=== PATIENT | female | born 1950 | race Caucasian/White ===

== ENCOUNTER 2016-12-03 11:10 | Observation (INO) ==
--- NOTE | 2016-12-03 12:22 | Emergency Department Note ---
Disposition Clinical Impression: Hemoptysis, Dyspnea on exertion, Abnormal EKG Disposition: Admitted As Inpatient Condition: Good Referrals: Karl Vargas Jr, MD [Primary Care Provider] - Forms: ED Satisfaction Letter Time of Disposition: 15:29 General Adult HPI - General Chief complaint: ED GI Bleed Stated complaint: Coughing up blood Time Seen by Provider: 12/03/16 11:30 Source: patient Limitations: no limitations Nursing Notes Reviewed: Yes Vital Signs Reviewed: Yes - History of Present Illness HPI Narrative: 66-year-old female history of 2 packs per day smoker, hyperlipidemia, hypothyroidism presents the ED for hemoptysis. Patient states this morning 1 AM she woke coffin up Yusuf blood. When I asked to describe it she denies sputum with blood streaks or any combination but more so blood. No history of this and the past. No anticoagulant used. She denies any chest pain, shortness breath or abdominal pain with us. Denies any bloody stool black tarry stool. Denies any history of active cancer, blood clots, surgery, hospitalization or long-distance travel. Denies any history of incarceration, TB exposure, fever, recent illness, weight loss. She reports a few weeks ago while in [place] she felt more short of breath with exertion. Denied and chest pain at that time. She has some soreness in her shoulders that has been chronic for past several weeks. The only thing new in concerning his her coughing up blood. Patient appears in no acute distress. Exam as otherwise unremarkable. She is not tachycardic or hypoxic. Will check EKG, to view chest x-ray, EKG as well as a troponin and d-dimer for low risk PE. Pain Scale: 3 - Related Data Home Medications Medication Instructions Recorded Confirmed Atorvastatin [Lipitor] 40 mg PO DAILY 12/03/16 12/03/16 Escitalopram [Lexapro] 20 mg PO DAILY 12/03/16 12/03/16 Levothyroxine Sodium 100 mcg PO QAM 12/03/16 12/03/16 [Levothyroxine Sodium] Allergies Allergy/AdvReac Type Severity Reaction Status Date / Time No Known Allergies Allergy Verified 09/20/16 12:52 All systems ED: reviewed and negative except as stated. Review of Systems: As Per HPI Constitutional: Denies: fever, chills, weight change, night sweats ENT ED: Denies: throat pain, congestion Cardiovascular: Denies: chest pain Respiratory: Reports: hemoptysis. Denies: cough, dyspnea Gastrointestinal: Denies: abdominal pain, nausea, vomiting Genitourinary: Denies: urgency, dysuria Musculoskeletal: Denies: back pain, neck pain Integumentary: Denies: rash, abrasion Neurological: Denies: headache, weakness Past Medical History - Past Medical History Attestation: Yes The following information was validated with the patient. Source: patient Medical history: Reports: hyperlipidemia, thyroid disease, other Psychiatric history: Reports: depression - Social History Smoking Status: Current every day smoker Smokeless Tobacco Status: No Alcohol use: Reports: none Drug use: Reports: none Physical Exam - General Limitations: no limitations General appearance: alert, in no apparent distress - Head Head exam: atraumatic, normocephalic, normal inspection - Eye Eye exam: Present: normal appearance, PERRL, EOMI - ENT ENT exam: normal exam, normal oropharynx, mucous membranes moist - Expanded ENT Exam External ear exam: Present: normal external inspection Nose exam: negative: rhinorrhea Mouth exam: Present: normal external inspection, tongue normal Teeth exam: Present: normal inspection Throat exam: Present: normal inspection, other (no obvious bleed, no posterior oropharngeal erythema). Absent: tonsillar exudate - Neck Neck exam: Present: normal inspection, full ROM, trachea midline - Chest Chest inspection: Present: normal inspection, symmetric chest wall rise - Respiratory Respiratory exam: Present: normal lung sounds bilaterally. Absent: respiratory distress, wheezes - Cardiovascular Cardiovascular exam: Present: regular rate, normal rhythm, normal heart sounds - Abdominal Exam Abdominal exam: Present: soft, Non-Tender, normal bowel sounds. Absent: tenderness, distention, guarding, rebound, rigidity - Extremities Exam Extremities exam: Present: normal inspection, full ROM, normal capillary refill. Absent: tenderness, pedal edema - Back Exam Back exam: Present: normal inspection, full ROM. Absent: tenderness - Neurological Exam Neurological exam: Present: alert, oriented X3, normal gait - Psychiatric Psychiatric exam: Present: normal affect, normal mood - Skin Skin exam: Present: warm, dry, intact, normal color Course - Reevaluation(s) Reevaluation #1: EKG shows some abnormal findings of T wave inversion in lateral leads. No old EKG for comparison. This is concerning given her recent episodes of dyspnea on exertion. Troponin is negative. Her D dimer is within normal limits. Low likelihood of pulmonary embolism. No risk factors for TB. Her chest x-ray does not show pneumonia or mass. Consideration for bronchitis but she denies any chronic cough. She continues to have yusuf hemoptysis as we can see in her tissues. Would like to admit her to medicine to evaluate her heart given EKG changes as well as inpatient evaluation for her hemoptysis. Patients in agreement with this plan. Aspirin has been given. Impression is abnormal EKG, hemoptysis, dyspnea on exertion. Time: 13:10 - Consultations Consultation #1: Spoke with on-call hospitalist stacy Travis to admit for hemoptysis, dyspnea on exertion, and abnormal EKG. the hospital's requests CTA of the chess to evaluate for pulmonary embolism. I discussed with her she is low risk given no history of cancer, blood clots, recent long-distance travel surgery or hospitalization as well as a normal D dimer and EKG with no right heart strain.. Requests CT prior transfer to the medical floor. Time: 15:17 Vital Signs Temperature 98.1 F 12/03/16 11:23 Pulse Rate 65 12/03/16 11:23 Respiratory Rate 16 12/03/16 11:23 Blood Pressure 155/84 12/03/16 11:23 O2 Sat by Pulse Oximetry 96 12/03/16 11:23 Temperature 98.1 F 12/03/16 11:23 Pulse Rate 73 12/03/16 14:12 Respiratory Rate 18 12/03/16 14:12 Blood Pressure 175/112 12/03/16 14:12 O2 Sat by Pulse Oximetry 99 12/03/16 14:12 Oxygen Delivery Oxygen Delivery Room Air Medical Decision Making - Medical Records Medical records reviewed: Yes I reviewed the patient's medical records. - Lab Data Lab results reviewed: Yes I reviewed the patient's lab results. Result diagrams: 12/03/16 12:25 12/03/16 12:25 Lab Results 12/03/16 12/03/16 12/03/16 Range/Units 12:25 12:25 12:25 WBC 6.3 (4.3-11.1) K/mcL RBC 4.80 (3.82-4.97) M/mcL Hgb 14.9 (11.5-15.4) g/dL Hct 45.9 H (35.3-44.9) % MCV 95.6 (83.0-100.0) fL MCH 31.0 (28.0-33.3) pg MCHC 32.5 (31.6-35.5) g/dL RDW 14.2 (11.5-14.5) % Plt Count 233 (140-400) K/mcL MPV 10.2 (9.4-12.4) fL Immature Gran % 0.5 (0-4) % Seg Neutrophils % 51.1 % Lymphocytes % 34.3 % Monocytes % 9.9 % Eosinophils % 3.2 % Basophils % 1.0 % Neutrophils # 3.2 (1.6-8.9) K/mcL Lymphocytes # 2.2 (0.6-4.6) K/mcL Monocytes # 0.6 (0.0-1.3) K/mcL Eosinophils # 0.2 (0.0-0.6) K/mcL Basophils # 0.1 (0.0-0.2) K/mcL Reactive Lymphocytes Present A (Not Present) Platelet Estimate Normal (Normal) D-Dimer 277 (0-500) ng/mLFEU Sodium 139 (136-145) mEq/L Potassium 4.4 (3.5-4.5) mEq/L Chloride 107 (98-109) mEq/L Carbon Dioxide 23 (19-29) mEq/L BUN 10 (7-20) mg/dL Creatinine 0.74 (0.57-1.11) mg/dL Est GFR ( Amer) > 60 (> 60) Est GFR (Non-Af Amer) > 60 (> 60) BUN/Creatinine Ratio 14 (6-26) Glucose 106 H (70-99) mg/dL Calculated Osmolality 287 (280-300) Calcium 9.5 (8.6-10.8) mg/dL Troponin I (0-0.03) ng/mL 12/03/16 Range/Units 12:25 WBC (4.3-11.1) K/mcL RBC (3.82-4.97) M/mcL Hgb (11.5-15.4) g/dL Hct (35.3-44.9) % MCV (83.0-100.0) fL MCH (28.0-33.3) pg MCHC (31.6-35.5) g/dL RDW (11.5-14.5) % Plt Count (140-400) K/mcL MPV (9.4-12.4) fL Immature Gran % (0-4) % Seg Neutrophils % % Lymphocytes % % Monocytes % % Eosinophils % % Basophils % % Neutrophils # (1.6-8.9) K/mcL Lymphocytes # (0.6-4.6) K/mcL Monocytes # (0.0-1.3) K/mcL Eosinophils # (0.0-0.6) K/mcL Basophils # (0.0-0.2) K/mcL Reactive Lymphocytes (Not Present) Platelet Estimate (Normal) D-Dimer (0-500) ng/mLFEU Sodium (136-145) mEq/L Potassium (3.5-4.5) mEq/L Chloride (98-109) mEq/L Carbon Dioxide (19-29) mEq/L BUN (7-20) mg/dL Creatinine (0.57-1.11) mg/dL Est GFR ( Amer) (> 60) Est GFR (Non-Af Amer) (> 60) BUN/Creatinine Ratio (6-26) Glucose (70-99) mg/dL Calculated Osmolality (280-300) Calcium (8.6-10.8) mg/dL Troponin I 0.00 (0-0.03) ng/mL - Radiology Data Radiology results reviewed: Yes I reviewed the patient's radiology results. Chest X-Ray 12/03/16 12:06 IMPRESSION: 1. No active pulmonary disease. D/ / aRn Momin MD / Ran Momin MD Interpreting Provider: Ran Momin MD - EKG Data EKG #1 EKG attestation: Yes I reviewed and interpreted this EKG. EKG results narrative: EKG performed 1225 normal sinus rhythm 64 beats per minute, normal axis, T wave inversion seen in the lateral leads (lead I, avL, V4-V6). No ST elevations or depression. No old EKG for comparison. This is an abnormal EKG. No chest pain at this time. Intervals are within normal limits. Attestation Statement - Attestation Attestation: I examined this patient and my medical decision-making was reviewed with the Resident Physician. I agree with the documented findings, disposition and treatment plan as described except to the extent set forth below. Yusuf hemoptysis started at 1:00 this morning, no sputum, only blood, about 30 episodes per patient report. No shortness of breath currently, although over the last couple of months she has had some exertional dyspnea that is a new symptom for her. No associated chest pain. No recent travel, trauma or surgery. No history of cancer, DVT or PE. Vital signs are normal. EKG shows nonspecific anterolateral ST segment depression and T-wave inversion, no old EKG available for comparison. She has no tuberculosis risk factors. She has no viral symptoms that would suggest bronchitis as a source for her hemoptysis. Clinical suspicion for PE is low, she is low risk by well's criteria as a negative d-dimer, PE is ruled out. Given her extensive smoking history, I am concerned about the possibility of malignancy. This can be worked up as an outpatient, however, given her exertional dyspnea and abnormal EKG, and inpatient evaluation by cardiology is warranted, and she could be evaluated for her hemoptysis while she is in the hospital.
[2016-12-03 12:36] LABS: Basophils # 0.1 K/mcL (0.0-0.2); Eosinophils # 0.2 K/mcL (0.0-0.6); Eosinophils % 3.2 %; Hematocrit 45.9 % (35.3-44.9); Hemoglobin 14.9 g/dL (11.5-15.4); Immature Granulocytes % 0.5 % (0-4); Lymphocytes # 2.2 K/mcL (0.6-4.6); Lymphocytes % 34.3 %; Mean Corpuscular HGB Conc 32.5 g/dL (31.6-35.5); Mean Corpuscular Volume 95.6 fL (83.0-100.0); Mean Platelet Volume 10.2 fL (9.4-12.4); Monocytes # 0.6 K/mcL (0.0-1.3); Monocytes % 9.9 %; Neutrophils # 3.2 K/mcL (1.6-8.9); Platelet Count 233 K/mcL (140-400); Red Cell Distribution Width 14.2 % (11.5-14.5); Segmented Neutrophils % 51.1 %
[2016-12-03 12:48] LABS: BUN/Creatinine Ratio 14 (6-26); Blood Urea Nitrogen 10 mg/dL (7-20); Calcium 9.5 mg/dL (8.6-10.8); Carbon Dioxide 23 mEq/L (19-29); Chloride 107 mEq/L (98-109); Glucose 106 mg/dL (70-99); Osmolality,Calculated 287 (280-300); Potassium 4.4 mEq/L (3.5-4.5); Sodium 139 mEq/L (136-145); eGFR For African Americans > 60 (> 60); eGFR For Non-African Americans > 60 (> 60)
[2016-12-03 13:10] LABS: Platelet Estimate Normal (Normal); Reactive Lymphocytes Present (Not Present)
[2016-12-03] MEDS ORDERED: Aspirin 81 MG TAB.CHEW PO STA (13:41)
[2016-12-03] MEDS ORDERED: Naloxone 0.4 MG/ML INJ IVP PRN (15:36)
[2016-12-03] MEDS ORDERED: Acetaminophen 325 MG TABLET PO PRN (15:36)
--- NOTE | 2016-12-03 15:44 | Internal Med History&Physical ---
<Lily Barth M - Last Filed: 12/03/16 17:14> Date of Encounter: 12/03/16 Time of Encounter: 15:42 Assessment and Plan (1) Pneumonia Current visit: Yes Status: Acute Patient presented with hemoptysis and reports some shortness of breath on exertion. CXR with no acute process. CT chest revealed ground glass in RUL concerning for pneumonia vs. alveolar damage, as well as findings consistent with bronchitis. Azithromycin and Ceftriaxone IVPB duoneb treatments QID PRN titrate oxygen to maintain saturation > 92%. Qualifiers: Pneumonia type: due to unspecified organism Laterality: right Lung location: upper lobe of lung Qualified Code(s): J18.1 - Lobar pneumonia, unspecified organism (2) Hemoptysis Current visit: Yes Status: Acute Patient reports coughing up yusuf blood since 1am. Yusuf blood observed on tissues that she has coughed up. She denies bloody nose or gums, no bleeding observed in the mouth. She denies nausea or vomiting. She denies chest pain. CXR shows no active pulmonary disease. CT chest shows ground glass in the right upper lobe consistent with pneumonia or alveolar damage, as well as findings consistent with bronchitis. Will treat for pneumonia with azithromycin and ceftriaxone. Consider pulmonary consult if hemoptysis does not resolve. (3) Dyspnea on exertion Current visit: Yes Status: Acute Patient reports some dyspnea on exertion recently, no chest pain. She has significant smoking history. EKG showed t wave inversions with no basis for comparison. troponin negative. Continuous cardiac cath tech serial troponins echocardiogram. (4) Abnormal EKG Current visit: Yes Status: Acute EKG shows t-wave inversions with no basis for comparison. Patient denies chest pain, but reports occasional dyspnea on exertion. continuous cardiac cath tech serial troponins repeat EKG in 6 hours echocardiogram. (5) DVT prophylaxis Current visit: Yes Status: Acute sequential compression devices. Internal Medicine - H&P: HPI Chief complaint: coughing up blood Admitted From: Emergency Dept Plans for Post Hospital Care: Home History of present illness: Ms. Molina is a 66 year old female with hypothyroidism, hyperlipidemia, significant smoking history presents to the emergency department today with complaints of coughing up blood. Patient reports that at about 1 AM she started coughing and was coughing up yusuf blood. She has continued to cough up yusuf blood since that time. She denies any chest pain, shortness of breath , lightheadedness. She does report some dyspnea on exertion recently. She denies any nausea, vomiting, abdominal pain, diarrhea, black or bloody stools. She denies any headache, fever, chills or sweats. She denies any bloody noses, bloody gums, or any other episodes of bleeding. Evaluation in the emergency department revealed normal hemoglobin and hematocrit, normal white blood cell count. Troponin was negative at 0.0, d-dimer was normal. Her EKG did show some T-wave inversions and there was no baseline for comparison. Chest x-ray showed no active pulmonary disease. CTA was ordered, however not yet performed. On exam, patient alert and oriented, in no acute distress. Heart has regular rate and rhythm with systolic murmur. Lungs were clear bilaterally with diminished sounds on the right. Abdomen soft nontender with positive bowel sounds. No peripheral edema, peripheral pulses intact. Past Med Surg Social Fam HX - Past Medical History Medical history: hyperlipidemia, thyroid disease, other Psychiatric history: depression - Past Surgical History Surgical History: no surgical history - Social History Smoking Status: Current every day smoker (90 pack year history) Packs per day: 2 Smokeless Tobacco Status: No Alcohol use: none Drug use: none - Family History Mother Living Status: Cause of : copd Hx Family Respiratory Disorders: Yes Father Living Status: Age at : 59 Hx Family Cancer: Yes Internal Medicine - H&P: Meds Atorvastatin [Lipitor] 40 mg PO DAILY 12/03/16 [History] Escitalopram [Lexapro] 20 mg PO DAILY 12/03/16 [History] Levothyroxine Sodium [Levothyroxine Sodium] 100 mcg PO QAM 12/03/16 [History] Allergies No Known Allergies Allergy (Verified 09/20/16 12:52) All Systems PM: A 10-system review of systems was performed and is negative for pertinent findings except as documented above in the HPI. - Constitutional Constitutional: no chills, no fever(s), no night sweats - EENT Eyes: no change in vision, no discharge, no pain, no photophobia Ears: no ear discharge, no ear pain, no tinnitus Nose, mouth and throat: no dysphagia, no nasal discharge, no neck pain, no sore throat - Cardiovascular Cardiovascular ROS IM: no chest pain, no diaphoresis, no dyspnea, no lightheadedness, no palpitations, no syncope - Respiratory Respiratory: hemoptysis, dyspnea on exertion, no cough, no dyspnea, no wheezing , no excessive phlegm production - Gastrointestinal Gastrointestinal: no abdominal pain, no diarrhea, no hematemesis, no hematochezia, no melena, no nausea, no vomiting - Genitourinary Genitourinary: no change in urinary stream, no dysuria, no flank pain, no hematuria - Musculoskeletal Musculoskeletal ROS IM: no numbness, no tingling - Integumentary Integumentary IM: no rash, no unusual bruising - Neurological Neurological ROS: no confusion, no convulsions, no focal weakness, no numbness, no tingling, no tremor(s) - Hematologic/Lymphatic Hematologic/Lymphatic: no easy bruising - Constitutional Vitals: Temp Pulse Resp BP Pulse Ox 98.1 F 73 18 175/112 99 12/03/16 11:23 12/03/16 14:12 12/03/16 14:12 12/03/16 14:12 12/03/16 14:12 General appearance: Present: A&O X 3, pleasant, no acute distress - Head Head exam: Present: atraumatic, normocephalic - Eye Eye exam: Present: PERRL, conjuntiva pink, sclera anicteric Pupils: Present: PERRL - Neck Neck exam general surgery: Present: supple, trachea midline. Absent: lymphadenopathy - Respiratory Respiratory exam: Present: CTAB. Absent: accessory muscle use, rales, rhonchi, wheezes - Cardiovascular Cardiovascular exam: Present: RRR, +S1, +S2, systolic murmur. Absent: diastolic murmur, gallop, rubs - GI/Abdominal GI/Abdominal exam: Present: normal bowel sounds, soft, no peritoneal signs. Absent: distended, tenderness - Extremities Exam Extremities exam: Present: warm, radial pulses palpable and symmetrical. Absent : calf tenderness, cyanotic, pedal edema - Neurological Exam Neurological exam: Present: CN II-XII intact, oriented X3, no focal deficits. Absent: facial droop, speech deficit - Skin Skin exam: Present: dry, intact Internal Med - H&P Results - Labs CBC & Chem 7: 12/03/16 12:25 12/03/16 12:25 Labs: All Lab Results (24 Hours) 12/03/16 12/03/16 12/03/16 Range/Units 12:25 12:25 12:25 WBC 6.3 (4.3-11.1) K/mcL RBC 4.80 (3.82-4.97) M/mcL Hgb 14.9 (11.5-15.4) g/dL Hct 45.9 H (35.3-44.9) % MCV 95.6 (83.0-100.0) fL MCH 31.0 (28.0-33.3) pg MCHC 32.5 (31.6-35.5) g/dL RDW 14.2 (11.5-14.5) % Plt Count 233 (140-400) K/mcL MPV 10.2 (9.4-12.4) fL Immature Gran % 0.5 (0-4) % Seg Neutrophils % 51.1 % Lymphocytes % 34.3 % Monocytes % 9.9 % Eosinophils % 3.2 % Basophils % 1.0 % Neutrophils # 3.2 (1.6-8.9) K/mcL Lymphocytes # 2.2 (0.6-4.6) K/mcL Monocytes # 0.6 (0.0-1.3) K/mcL Eosinophils # 0.2 (0.0-0.6) K/mcL Basophils # 0.1 (0.0-0.2) K/mcL Reactive Lymphocytes Present A (Not Present) Platelet Estimate Normal (Normal) D-Dimer 277 (0-500) ng/mLFEU Sodium 139 (136-145) mEq/L Potassium 4.4 (3.5-4.5) mEq/L Chloride 107 (98-109) mEq/L Carbon Dioxide 23 (19-29) mEq/L BUN 10 (7-20) mg/dL Creatinine 0.74 (0.57-1.11) mg/dL Est GFR ( Amer) > 60 (> 60) Est GFR (Non-Af Amer) > 60 (> 60) BUN/Creatinine Ratio 14 (6-26) Glucose 106 H (70-99) mg/dL Calculated Osmolality 287 (280-300) Calcium 9.5 (8.6-10.8) mg/dL Troponin I (0-0.03) ng/mL 08/11/17 Range/Units 12:25 WBC (4.3-11.1) K/mcL RBC (3.82-4.97) M/mcL Hgb (11.5-15.4) g/dL Hct (35.3-44.9) % MCV (83.0-100.0) fL MCH (28.0-33.3) pg MCHC (31.6-35.5) g/dL RDW (11.5-14.5) % Plt Count (140-400) K/mcL MPV (9.4-12.4) fL Immature Gran % (0-4) % Seg Neutrophils % % Lymphocytes % % Monocytes % % Eosinophils % % Basophils % % Neutrophils # (1.6-8.9) K/mcL Lymphocytes # (0.6-4.6) K/mcL Monocytes # (0.0-1.3) K/mcL Eosinophils # (0.0-0.6) K/mcL Basophils # (0.0-0.2) K/mcL Reactive Lymphocytes (Not Present) Platelet Estimate (Normal) D-Dimer (0-500) ng/mLFEU Sodium (136-145) mEq/L Potassium (3.5-4.5) mEq/L Chloride (98-109) mEq/L Carbon Dioxide (19-29) mEq/L BUN (7-20) mg/dL Creatinine (0.57-1.11) mg/dL Est GFR ( Amer) (> 60) Est GFR (Non-Af Amer) (> 60) BUN/Creatinine Ratio (6-26) Glucose (70-99) mg/dL Calculated Osmolality (280-300) Calcium (8.6-10.8) mg/dL Troponin I 0.00 (0-0.03) ng/mL - Impressions ITS Impressions Chest X-Ray 12/03/16 12:06 IMPRESSION: 1. No active pulmonary disease. D/ / Ran Momin MD / Ran Momin MD Interpreting Provider: Ran Momni MD - Diagnostic Studies Chest x-ray Additional comments: Chest X-Ray 12/03/16 12:06 IMPRESSION: 1. No active pulmonary disease. D/ / Ran Momin MD / Ran Momin MD Interpreting Provider: Ran Momin MD <Miguel Aggarwal - Last Filed: 12/03/16 17:43> Date of Encounter: 12/03/16 Internal Medicine - H&P: HPI History of present illness: Ms. Molina is a 66 year old female All Systems PM: A 10-system review of systems was performed and is negative for pertinent findings except as documented above in the HPI. - Constitutional Vitals: Temp Pulse Resp BP Pulse Ox 97.6 F 73 18 176/85 95 12/03/16 17:40 12/03/16 17:40 12/03/16 17:40 12/03/16 17:40 12/03/16 17:40 Internal Med - H&P Results - Labs CBC & Chem 7: 12/03/16 12:25 12/03/16 12:25 - Attending Attestation I examined this patient and my medical decision-making was reviewed with the Wireworker I agree with the documented findings, disposition and treatment plan as described
[2016-12-03 16:06] LABS: Prothrombin Time 10.3 Seconds (9.4-12.1)
[2016-12-03 16:09] LABS: Activated Partial Thrombo Time 32.6 Seconds (26.0-36.0)
--- NOTE | 2016-12-03 16:22 | Electrocardiograph Report ---
[facility] Test Date: 2016-12-03 Pat Name: Myah Molina Department: 104 Room: Gender: F Airplane Inspector: : 1950 Requested By: Tyrone Ugalde Order Number: [id number] Reading MD: Karl Vargas MD Measurements Intervals Blanding Rate: 64 P: 70 NC: 177 QRS: 5 QRSD: 76 T: 129 QT: 400 QTc: 409 Interpretive Statements SINUS RHYTHM ST DEVIATION AND MODERATE T-WAVE ABNORMALITY, CONSIDER ANTEROLATERAL ISCHEMIA Electronically Signed On 12-03-2016 16:20:11 EDT by Karl Vargas MD
[2016-12-03] MEDS ORDERED: Ipratropium/Albuterol Neb 3 ML IH PRN (17:18)
[2016-12-03] MEDS ORDERED: Azithromycin 500 MG in D5% in Water 250 ML IVPB SCH (19:00)
[2016-12-04 01:11] LABS: Basophils # 0.1 K/mcL (0.0-0.2); Basophils % 0.6 %; Eosinophils # 0.3 K/mcL (0.0-0.6); Eosinophils % 2.5 %; Hematocrit 44.4 % (35.3-44.9); Hemoglobin 14.6 g/dL (11.5-15.4); Immature Granulocytes % 0.8 % (0-4); Lymphocytes # 2.9 K/mcL (0.6-4.6); Mean Corpuscular HGB Conc 32.9 g/dL (31.6-35.5); Mean Corpuscular Hemoglobin 31.3 pg (28.0-33.3); Mean Corpuscular Volume 95.1 fL (83.0-100.0); Mean Platelet Volume 10.1 fL (9.4-12.4); Monocytes # 0.9 K/mcL (0.0-1.3); Monocytes % 8.6 %; Neutrophils # 5.9 K/mcL (1.6-8.9); Platelet Count 236 K/mcL (140-400); Red Blood Count 4.67 M/mcL (3.82-4.97); Red Cell Distribution Width 14.1 % (11.5-14.5); Segmented Neutrophils % 58.5 %
[2016-12-04 01:25] LABS: BUN/Creatinine Ratio 17 (6-26); Blood Urea Nitrogen 13 mg/dL (7-20); Calcium 9.5 mg/dL (8.6-10.8); Carbon Dioxide 26 mEq/L (19-29); Chloride 106 mEq/L (98-109); Glucose 99 mg/dL (70-99); Osmolality,Calculated 290 (280-300); Potassium 3.9 mEq/L (3.5-4.5); Sodium 140 mEq/L (136-145); eGFR For African Americans > 60 (> 60); eGFR For Non-African Americans > 60 (> 60)
[2016-12-04] MEDS ORDERED: Nicotine 2 MG GUM BC PRN (14:04)
[2016-12-04 15:09] VITALS: BP 118/55
--- NOTE | 2016-12-04 17:13 | Discharge Summary ---
Date of Encounter: 12/04/16 Time of Encounter: 09:30 (and 1630) - Discharge Diagnosis (1) Hemoptysis Priority: Primary Status: Resolved Comments: Unclear causation. Resolved shortly after admission. She remained hemodynamically stable. She tolerated room air and denied shortness of breath above her norm. Recommend close outpatient follow-up (2) Pneumonia Priority: Primary Status: Acute Comments: Imaging consistent with possible right upper lobe pneumonia. Treated with azithromycin and ceftriaxone while admitted, will send home on Levaquin. Patient denies shortness of breath above her normal day of discharge. Tolerated room air. Qualifiers: Pneumonia type: due to unspecified organism Laterality: right Lung location: upper lobe of lung Qualified Code(s): J18.1 - Lobar pneumonia, unspecified organism (3) Dyspnea on exertion Priority: Primary Status: Chronic Comments: Patient denies shortness of breath above her normal day of discharge. (4) Heavy tobacco smoker Priority: Secondary Status: Chronic Comments: smokes 2 PPD. States she will try to cut down on her own. (5) Abnormal EKG Priority: Primary Status: Ruled-out (6) DVT prophylaxis Priority: Primary Status: Acute Comments: Observation patient. Up ad david. - Discharge Medications Prescriptions: levoFLOXacin [Levofloxacin] 750 mg PO DAILY #5 tablet Home Medications: Atorvastatin [Lipitor] 40 mg PO DAILY 12/03/16 [History] Escitalopram [Lexapro] 20 mg PO DAILY 12/03/16 [History] Levothyroxine Sodium 100 mcg PO QAM 12/03/16 [History] levoFLOXacin [Levofloxacin] 750 mg PO DAILY #5 tablet 12/04/16 [Rx] Allergies/Adverse Reactions: Allergies No Known Allergies Allergy (Verified 09/20/16 12:52) Date of admission: 12/03/16 16:35 Primary care physician: Karl Vargas Jr, MD Discharging clinician: Stephanie Ridley Anticipated date of discharge: 12/04/16 - Patient Status Disposition: Home, Self-Care Condition: Good Functional capacity at discharge: independent ambulation Overall status at discharge: patient is back to baseline - Discharge Instructions Follow Up With: Karl Vargas Jr, MD [Primary Care Provider] - Additional Instructions: Follow-up with primary care provider within one to 2 weeks. Return to ED if coughing up blood returns - Diet and Activity Activity: increase activity as tolerated Diet: low fat, low cholesterol, low salt diet Hospital course: Ms. Molina is a 66 year old female with past medical history of hypothyroidism , hyperlipidemia, 2 pack per day smoker. Patient presented to the emergency department chief complaint of coughing up blood. Patient started on the morning of presentation, she started coughing and was coughing up yusuf blood. She continued to cough up yusuf blood throughout the day prompting her presentation to the emergency department. She denied chest pain, shortness of breath, lightheadedness. Patient did endorse dyspnea on exertion that started recently. She denied any nausea, vomiting, abdominal pain, diarrhea or melena. She denied headache, fever, chills. She denied bloody noses or bloody gums. Workup in the emergency department unremarkable except for possible EKG changes. Chest x-ray negative for acute processes. Patient was admitted to the hospitalist service for further evaluation and management. Chest CTA ruled out a PE but revealed groundglass abnormality to right upper lobe consistent with pneumonia versus alveolar damage. CTA also revealed bronchitis as well as pulmonary nodules with recommendation to repeat in 12 months and a thyroid nodule with recommendation to follow up outpatient. Patient denied chest pain or shortness of breath throughout this admission. Shortly after admission, her hemoptysis had resolved and she was extremely anxious to go home. Ideally, would prefer to have watched her overnight but she refused stating she needed to go home immediately. We discussed her 2 pack per day smoking. She is under the impression that because she uses a "tar bar" that her cigarettes are not harming her. A Tar bar is a plastic piece that is placed on the end of a cigarette that serves as an extra filter that reduces tar and nicotine inhalation. The patient was under the impression that this filter completely alleviated any ingestion of tar or nicotine, tented educate her but she remained stagnant. She states that she started using the 6 months ago and declines smoking cessation counseling at this time. Of note, she has not officially been diagnosed with COPD and she is not on any controller medications. On examination during this admission, she had decreased breath sounds throughout with diffuse expiratory wheezing. Recommended initiation of COPD inhalers however the patient declined stating that she would rather discuss this with her primary care provider. She was treated with azithromycin and ceftriaxone while admitted and sent home on levofloxacin for suspected pneumonia. She tolerated room air during this admission. Her hemoptysis had resolved. She was discharged home in stable condition with close outpatient follow-up recommended. She was instructed to return to the emergency department should her hemoptysis return. ITS Impressions Chest X-Ray 12/03/16 12:06 IMPRESSION: 1. No active pulmonary disease. D/ / Ran Momin MD / Ran Momin MD Interpreting Provider: Ran Momin MD Chest CTA 12/03/16 15:01 IMPRESSION: 1. No findings of pulmonary embolism. 2. Peribronchovascular groundglass in the apical segment of the right upper lobe, potentially pneumonia or alveolar damage. 3. Minimal to mild bronchial wall thickening with patchy bilateral bronchial secretions, suggesting bronchitis. 4. 0.3 cm solid nodules in each lower lobe. Consider follow-up chest CT in 12 months if the patient is clinically considered to be at increased risk for lung cancer per the Fleischner Society recommendations for solid nodules as below. 5. 1.7 cm x 1.4 cm hypodense nodule arising from the lower pole of the right thyroid lobe. Recommend further evaluation with a dedicated thyroid sonogram on a nonemergent basis given nodule size and patient age. RECOMMENDATIONS: Fleischner Society guidelines for follow-up and management of incidentally detected pulmonary nodules: Multiple Solid Nodules: Nodule size less than 6 mm In a low-risk patient, no routine follow-up. In a high-risk patient, optional CT at 12 months. - Low risk patients include individuals with minimal or absent history of smoking and other known risk factors. - High risk patients include individuals with a history or smoking or known risk factors. Radiology 2017 http://pubs.rsna.org/doi/full/10.1148/radiol.3596020992 Managing Incidental Thyroid Nodule Detected at CT or MRI or US 1. Further evaluation by thyroid Ultrasound recommended for these incidental nodules: Patient Age 35 years or more - Nodule 1.5 cm in size or greater 3. NO further imaging is recommended in the following scenarios -No US or f/u recommended for ITNs without high risk features in pts. with limited life expectancy or significant comorbidities, unless clinically warranted. Note: These recommendations do not apply to pts. w/ increased risk for thyroid cancer or pts. with symptomatic thyroid disease. Recommendations for f/u of Incidental Thyroid Nodules (ITN) found on CT, MR, NM and Extrathyroidal US are based upon the ACR white paper and [place] 3-tiered system for managing ITNs: J Am Vianney Radiol. 2014;12(2): 143-50 D/ / Chuck Chen MD / Chuck Chen MD Interpreting Provider: Chuck Chen MD Echocardiogram Impressions: LVEF 65-70%. There is evidence of mild diastolic dysfunction of the left ventricle. Probably increased LV wall thickness. Normal right ventricular size and function. Chordal systolic anterior motion of the mitral valve with trivial regurgitation. Mild LVOT gradient 20 mmHg with mid cavity obliteration. No pulmonary hypertension. Time spent discussing smoking cessation with patient: 3 to 10 minutes - Time Spent with Patient Total time spent providing and/or coordinating discharge services: - Constitutional Vitals: Temp Pulse Resp BP Pulse Ox 97.7 F 83 16 118/55 93 12/04/16 15:08 12/04/16 15:08 12/04/16 15:08 12/04/16 15:08 12/04/16 15:08 General appearance: Present: A&O X 3, pleasant, no acute distress, answers questions appropriately - Head Head exam: Present: atraumatic, normocephalic - Eye Eye exam: Present: PERRL, conjuntiva pink, sclera anicteric Pupils: Present: PERRL - Neck Neck exam general surgery: Present: supple, trachea midline. Absent: lymphadenopathy - Respiratory Respiratory exam: Present: decreased breath sounds, prolonged expiratory phase, wheezes. Absent: accessory muscle use, CTAB, rales, respiratory distress, rhonchi - Cardiovascular Cardiovascular exam: Present: RRR, +S1, +S2. Absent: diastolic murmur, gallop, rubs, systolic murmur - GI/Abdominal GI/Abdominal exam: Present: normal bowel sounds, soft, no peritoneal signs. Absent: distended, tenderness - Extremities Exam Extremities exam: Present: warm, radial pulses palpable and symmetrical. Absent : calf tenderness, cyanotic, pedal edema - Neurological Exam Neurological exam: Present: alert, CN II-XII intact, normal gait, oriented X3, no focal deficits, strengths equal and symetr throughout. Absent: pronater drift, facial droop, speech deficit - Skin Skin exam: Present: dry, intact, normal color, warm
--- NOTE | 2016-12-05 12:54 | Electrocardiograph Report ---
[address] [place] [address] Test Date: 2016-12-03 Pat Name: Myah Molina Department: 113 Room: 3B33 Gender: F Patient Accounts Manager: DEV : [id number] Requested By: Lily Barth Order Number: [id number] Reading MD: Monalisa Amezcua Measurements Intervals [place] Rate: 74 P: 61 MA: 164 QRS: 15 QRSD: 89 T: 103 QT: 393 QTc: 420 Interpretive Statements SINUS RHYTHM MODERATE T-WAVE ABNORMALITY, CONSIDER LATERAL ISCHEMIA Electronically Signed On 12-05-2016 12:53:09 EDT by Monalisa Amezcua
== END 2016-12-04 18:08 | disposition home or self-care (01) ==
LOC: EMEROO 11:10 → 3BNU 11:10
PROVIDERS: ADMIT Internal Medicine Endocrinology, Diabetes & Metabolism; ATTEND Nurse Practitioner Family

== ENCOUNTER 2019-07-21 12:07 | Inpatient (IN) ==
[2019-07-21 12:40] LABS: Basophils % 0.5 %; Eosinophils % 3.6 %; Segmented Neutrophils % 82.2 %
[2019-07-21 12:41] LABS: Basophils # 0.1 K/mcL (0.0-0.2); Eosinophils # 0.6 K/mcL (0.0-0.6); Hematocrit 28.7 % (35.3-44.9); Immature Granulocytes % 0.7 % (0-4); Immature Platelets 2.5 % (1.1-6.1); Lymphocytes # 0.8 K/mcL (0.6-4.6); Mean Corpuscular HGB Conc 27.9 g/dL (31.6-35.5); Mean Corpuscular Hemoglobin 19.4 pg (28.0-33.3); Mean Corpuscular Volume 69.5 fL (83.0-100.0); Mean Platelet Volume 10.1 fL (9.4-12.4); Monocytes # 1.3 K/mcL (0.0-1.3); Neutrophils # 13.6 K/mcL (1.6-8.9); Nucleated Red Blood Cells 0.2 /100 WBC (0); Platelet Count 477 K/mcL (140-400); Red Blood Count 4.13 M/mcL (3.82-4.97); Red Cell Distribution Width 19.8 % (11.5-14.5); White Blood Count 16.5 K/mcL (4.3-11.1)
[2019-07-21 12:44] LABS: INR 1.2; Prothrombin Time 13.2 Seconds (9.4-12.1)
[2019-07-21 12:46] LABS: Activated Partial Thrombo Time 28.6 Seconds (26.0-36.0)
[2019-07-21 12:59] LABS: BUN/Creatinine Ratio 17 (6-26); Blood Urea Nitrogen 9 mg/dL (8-23); Calcium 9.9 mg/dL (8.6-10.3); Carbon Dioxide 29 mEq/L (23-29); Chloride 98 mEq/L (98-107); Glucose 145 mg/dL (70-105); Osmolality,Calculated 285 (280-300); Sodium 137 mEq/L (136-145); Troponin I 0.03 ng/mL (< 0.04); eGFR For African Americans > 60 (> 60); eGFR For Non-African Americans > 60 (> 60)
[2019-07-21 13:11] LABS: Hypochromasia Present (Not Present); Microcytosis Present (Not Present); Platelet Estimate Increased (Normal); Polychromasia 1+ (Not Present)
[2019-07-21 13:12] LABS: Anisocytosis 2+ (Not Present)
[2019-07-21 13:38] LABS: Bilirubin,Urine Negative (Negative); Blood,Urine Negative (Negative); Color,Urine Yellow (Yellow); Glucose,Urine (UA) Normal (Normal); Ketones,Urine Negative (Negative); Leukocyte Esterase,Urine Trace (Negative); Nitrite,Urine Negative (Negative); Protein,Urine 30 mg/dL (Neg-Trace); Specific Gravity,Urine 1.022 (1.010-1.025); Urobilinogen,Urine Normal (Normal)
[2019-07-21 13:41] LABS: Bacteria,Urine Few per hpf (None-Few); Hyaline Casts,Urine None Seen per lpf (None-Few); Squamous Epithelial Cell,Urine Many per lpf (None-Few)
[2019-07-21 13:43] LABS: Clarity,Urine Slightly Cloudy (Clear)
[2019-07-21] MEDS ORDERED: Ipratropium/Albuterol Neb 3 ML IH ONE (14:26)
[2019-07-21] MEDS ORDERED: Ondansetron 4 MG/2 ML VIAL IVP PRN (14:28)
[2019-07-21] MEDS ORDERED: Naloxone 0.4 MG/ML INJ IVP PRN (14:28)
[2019-07-21] MEDS ORDERED: Acetaminophen 325 MG TABLET PO PRN (14:28)
[2019-07-21] MEDS ORDERED: amLODIPine 5 MG TABLET PO ONE (14:30)
[2019-07-21] MEDS: *HR* OxyCODONE Immed Rel 5 MG TABLET PO PRN (17:07)
[2019-07-21] MEDS ORDERED: Isovue-370 500 ML BOTTLE IVP ONE (17:32)
[2019-07-21] MEDS ORDERED: *HR* LORazepam 0.5 MG TABLET PO PRN (17:35)
[2019-07-21] MEDS: Budesonide/Formoterol 80/4.5 1 PUFF INH IH SCH (20:04)
[2019-07-21] MEDS: *HR* HYDROcodone/Acet 5/325 mg TABLET PO PRN (20:24)
[2019-07-21 20:35] LABS: Carcinoembryonic Antigen > 850.0 ng/mL (Less than 5.0)
[2019-07-22 02:59] LABS: Red Cell Distribution Width 19.8 % (11.5-14.5)
[2019-07-22 03:01] LABS: Hematocrit 27.2 % (35.3-44.9); Hemoglobin 7.6 g/dL (11.5-15.4); Immature Platelets 2.9 % (1.1-6.1); Mean Corpuscular HGB Conc 27.9 g/dL (31.6-35.5); Mean Corpuscular Hemoglobin 19.3 pg (28.0-33.3); Mean Platelet Volume 10.4 fL (9.4-12.4); Red Blood Count 3.94 M/mcL (3.82-4.97); White Blood Count 15.5 K/mcL (4.3-11.1)
[2019-07-22] MEDS: *HR* HYDROcodone/Acet 5/325 mg TABLET PO PRN ×2 (03:08→18:50)
[2019-07-22 03:15] LABS: BUN/Creatinine Ratio 19 (6-26); Blood Urea Nitrogen 8 mg/dL (8-23); Calcium 9.6 mg/dL (8.6-10.3); Carbon Dioxide 31 mEq/L (23-29); Chloride 101 mEq/L (98-107); Glucose 101 mg/dL (70-105); Magnesium 1.9 mg/dL (1.6-2.6); Osmolality,Calculated 280 (280-300); Potassium 3.6 mEq/L (3.5-5.1); Sodium 136 mEq/L (136-145); eGFR For African Americans > 60 (> 60); eGFR For Non-African Americans > 60 (> 60)
[2019-07-22] MEDS: Budesonide/Formoterol 80/4.5 1 PUFF INH IH SCH ×2 (07:42→20:09)
[2019-07-22] MEDS ORDERED: Spironolactone 25 MG TABLET PO SCH (09:00)
[2019-07-22] MEDS: *HR* OxyCODONE Immed Rel 5 MG TABLET PO PRN (09:34)
[2019-07-22 11:28] LABS: Immature Reticulocyte % 33.3 % (11.0-38.0); Retculocyte # 0.05 M/mcL (0.05-0.10); Reticulocyte % 1.4 % (1.6-2.8)
[2019-07-22 12:09] LABS: Ferritin 26 ng/mL (10-120); Iron < 10 mcg/dL (50-170); Transferrin 286 mg/dL (203-362)
[2019-07-22 12:24] LABS: Folate > 22.3 ng/mL (3.0-16.0); Vitamin B12 > 1500 pg/mL (250-1100)
[2019-07-23 01:34] LABS: Hemoglobin 7.7 g/dL (11.5-15.4)
[2019-07-23 01:35] LABS: Hematocrit 28.2 % (35.3-44.9); Mean Corpuscular HGB Conc 27.3 g/dL (31.6-35.5); Mean Corpuscular Hemoglobin 19.1 pg (28.0-33.3); Red Blood Count 4.03 M/mcL (3.82-4.97); Red Cell Distribution Width 19.4 % (11.5-14.5); White Blood Count 14.8 K/mcL (4.3-11.1)
[2019-07-23 01:54] LABS: BUN/Creatinine Ratio 13 (6-26); Blood Urea Nitrogen 7 mg/dL (8-23); Calcium 10.2 mg/dL (8.6-10.3); Carbon Dioxide 31 mEq/L (23-29); Chloride 95 mEq/L (98-107); Glucose 153 mg/dL (70-105); Osmolality,Calculated 279 (280-300); Potassium 3.1 mEq/L (3.5-5.1); Sodium 134 mEq/L (136-145); eGFR For African Americans > 60 (> 60); eGFR For Non-African Americans > 60 (> 60)
[2019-07-23] MEDS ORDERED: Iron Sucrose Complex 400 MG in 0.9 % Sodium Chloride 250 ML IVPB ONE (07:35)
[2019-07-23] MEDS: Budesonide/Formoterol 80/4.5 1 PUFF INH IH SCH ×2 (07:35→20:50)
[2019-07-23] MEDS: Spironolactone 25 MG TABLET PO SCH ×2 (08:19→20:40)
[2019-07-23] MEDS: 0.9 % Sodium Chloride 500 ML IVC SCH (10:04)
[2019-07-23] MEDS ORDERED: *HR* Propofol 200 MG/20 ML VIAL IVP ONE (10:34)
[2019-07-23] MEDS ORDERED: Lidocaine -MPF 2% 2 ML VIAL ONE (10:35)
[2019-07-23] MEDS: *HR* HYDROcodone/Acet 5/325 mg TABLET PO PRN (17:45)
[2019-07-23] MEDS ORDERED: Perflutren Lipid Microsphere 1.3 ML in 0.9 % Sodium Chloride 8.7 ML IVP ONE (17:48)
[2019-07-24 02:24] LABS: Hematocrit 25.4 % (35.3-44.9); Hemoglobin 7.1 g/dL (11.5-15.4); Mean Corpuscular Hemoglobin 19.2 pg (28.0-33.3); Mean Corpuscular Volume 68.8 fL (83.0-100.0); Mean Platelet Volume 10.1 fL (9.4-12.4); Platelet Count 322 K/mcL (140-400); Red Blood Count 3.69 M/mcL (3.82-4.97); Red Cell Distribution Width 19.7 % (11.5-14.5); White Blood Count 14.9 K/mcL (4.3-11.1)
[2019-07-24 02:47] LABS: BUN/Creatinine Ratio 17 (6-26); Blood Urea Nitrogen 7 mg/dL (8-23); Calcium 9.9 mg/dL (8.6-10.3); Carbon Dioxide 29 mEq/L (23-29); Chloride 101 mEq/L (98-107); Glucose 118 mg/dL (70-105); Osmolality,Calculated 285 (280-300); Potassium 3.6 mEq/L (3.5-5.1); Sodium 138 mEq/L (136-145); eGFR For African Americans > 60 (> 60); eGFR For Non-African Americans > 60 (> 60)
[2019-07-24] MEDS: *HR* OxyCODONE Immed Rel 5 MG TABLET PO PRN ×2 (05:03→16:41)
[2019-07-24] MEDS: Budesonide/Formoterol 80/4.5 1 PUFF INH IH SCH ×2 (07:42→22:16)
[2019-07-24] MEDS: amLODIPine 5 MG TABLET PO SCH (08:10)
[2019-07-24] MEDS: Spironolactone 25 MG TABLET PO SCH ×2 (08:11→20:27)
[2019-07-24] MEDS ORDERED: 0.9 % Sodium Chloride 250 ML IVC SCH (17:45)
[2019-07-25] MEDS: 0.9 % Sodium Chloride 1,000 ML IVC SCH ×3 (00:06→23:07)
[2019-07-25 03:56] LABS: Hematocrit 28.6 % (35.3-44.9); Hemoglobin 8.3 g/dL (11.5-15.4); Mean Corpuscular Hemoglobin 20.9 pg (28.0-33.3); Mean Corpuscular Volume 71.9 fL (83.0-100.0); Mean Platelet Volume 9.5 fL (9.4-12.4); Platelet Count 349 K/mcL (140-400); Red Blood Count 3.98 M/mcL (3.82-4.97); Red Cell Distribution Width 20.1 % (11.5-14.5); White Blood Count 15.2 K/mcL (4.3-11.1)
[2019-07-25 04:17] LABS: BUN/Creatinine Ratio 18 (6-26); Blood Urea Nitrogen 8 mg/dL (8-23); Calcium 10.1 mg/dL (8.6-10.3); Carbon Dioxide 31 mEq/L (23-29); Chloride 101 mEq/L (98-107); Glucose 120 mg/dL (70-105); Osmolality,Calculated 286 (280-300); Potassium 3.5 mEq/L (3.5-5.1); Sodium 138 mEq/L (136-145); eGFR For African Americans > 60 (> 60); eGFR For Non-African Americans > 60 (> 60)
[2019-07-25] MEDS: *HR* OxyCODONE Immed Rel 5 MG TABLET PO PRN (08:06)
[2019-07-25] MEDS: Spironolactone 25 MG TABLET PO SCH (08:07)
[2019-07-25] MEDS: amLODIPine 5 MG TABLET PO SCH (08:07)
[2019-07-25] MEDS: Budesonide/Formoterol 80/4.5 1 PUFF INH IH SCH ×2 (08:25→22:20)
[2019-07-25] MEDS ORDERED: *HR* Phenylephrine 10 MG/ML VIAL ONE (08:26)
[2019-07-25] MEDS ORDERED: *HR* Propofol 200 MG/20 ML VIAL IVP ONE (09:18)
[2019-07-25] MEDS ORDERED: Lidocaine -MPF 2% 2 ML VIAL ONE (09:19)
[2019-07-25] MEDS ORDERED: Ondansetron 4 MG/2 ML VIAL ONE (09:19)
[2019-07-25] MEDS ORDERED: Dexamethasone 4 MG/ML VIAL ONE (09:19)
[2019-07-25] MEDS ORDERED: *HR* Rocuronium Bromide 50 MG/5 ML VIAL ONE (09:19)
[2019-07-25] MEDS ORDERED: *HR* FentaNYL (PF) 100 MCG/2 ML VIAL ONE (09:19)
[2019-07-25] MEDS ORDERED: CefOXitin 1,000 MG VIAL ONE (10:06)
[2019-07-25] MEDS ORDERED: *HR* HYDROmorphone PF 0.5 MG/0.5 ML SYRINGE IVP PRN (10:29)
[2019-07-25] MEDS ORDERED: *HR* Promethazine 25 MG/ML VIAL IVP PRN (10:29)
[2019-07-25] MEDS ORDERED: Ondansetron 4 MG/2 ML VIAL IVP ONE (10:29)
[2019-07-25] MEDS ORDERED: *HR* Meperidine 25 MG/ML SYRINGE IVP PRN (10:29)
[2019-07-25] MEDS ORDERED: *HR* OxyCODONE Immed Rel 5 MG TABLET PO PRN (10:29)
[2019-07-25] MEDS ORDERED: CefOXitin 2,000 MG VIAL ONE (11:17)
[2019-07-25] MEDS ORDERED: *HR* HYDROMORPHONE 2 MG/ML VIAL ONE (11:44)
[2019-07-25] MEDS ORDERED: Albuterol 2.5 MG/3 ML NEBULIZER ONE (13:05)
[2019-07-25 14:45] LABS: Hematocrit 30.3 % (35.3-44.9); Hemoglobin 8.4 g/dL (11.5-15.4)
[2019-07-25] MEDS ORDERED: *HR* HYDROmorphone 20 MG/20 ML PCA IVC PRN (14:54)
[2019-07-25] MEDS ORDERED: *HR* LORazepam 0.5 MG TABLET PO PRN (14:54)
[2019-07-25] MEDS ORDERED: Ondansetron 4 MG/2 ML VIAL IVP PRN (14:54)
[2019-07-25] MEDS ORDERED: Naloxone 0.4 MG/ML INJ IVP PRN (14:54)
[2019-07-25] MEDS: cefOXitin 1,000 MG in 0.9 % Sodium Chloride Mini Bag 100 ML IVPB SCH ×2 (18:11→23:07)
[2019-07-25] MEDS: Acetaminophen IV 1,000 MG/100 ML INFUS..BTL IVPB SCH ×2 (18:12→23:07)
[2019-07-26 04:33] LABS: Basophils % 0.1 %; Hemoglobin 8.1 g/dL (11.5-15.4); Immature Granulocytes % 0.7 % (0-4); Nucleated Red Blood Cells 0.3 /100 WBC (0)
[2019-07-26 04:35] LABS: Hematocrit 28.5 % (35.3-44.9); Lymphocytes # 0.7 K/mcL (0.6-4.6); Lymphocytes % 4.2 %; Mean Corpuscular HGB Conc 28.4 g/dL (31.6-35.5); Mean Corpuscular Hemoglobin 20.4 pg (28.0-33.3); Mean Corpuscular Volume 71.6 fL (83.0-100.0); Mean Platelet Volume 9.6 fL (9.4-12.4); Monocytes # 1.2 K/mcL (0.0-1.3); Monocytes % 7.2 %; Neutrophils # 14.8 K/mcL (1.6-8.9); Platelet Count 366 K/mcL (140-400); Red Blood Count 3.98 M/mcL (3.82-4.97); Red Cell Distribution Width 20.8 % (11.5-14.5); Segmented Neutrophils % 87.8 %; White Blood Count 16.9 K/mcL (4.3-11.1)
[2019-07-26 04:52] LABS: Hypochromasia Present (Not Present); Platelet Estimate Normal (Normal)
[2019-07-26 04:53] LABS: BUN/Creatinine Ratio 29 (6-26); Blood Urea Nitrogen 14 mg/dL (8-23); Calcium 10.7 mg/dL (8.6-10.3); Carbon Dioxide 30 mEq/L (23-29); Chloride 105 mEq/L (98-107); Glucose 132 mg/dL (70-105); Osmolality,Calculated 296 (280-300); Potassium 3.7 mEq/L (3.5-5.1); Sodium 142 mEq/L (136-145); eGFR For African Americans > 60 (> 60); eGFR For Non-African Americans > 60 (> 60)
[2019-07-26] MEDS: Acetaminophen IV 1,000 MG/100 ML INFUS..BTL IVPB SCH ×4 (05:34→23:42)
[2019-07-26] MEDS: Budesonide/Formoterol 80/4.5 1 PUFF INH IH SCH ×2 (07:58→20:40)
[2019-07-26] MEDS: cefOXitin 1,000 MG in 0.9 % Sodium Chloride Mini Bag 100 ML IVPB SCH (08:52)
[2019-07-26] MEDS: amLODIPine 5 MG TABLET PO SCH (08:56)
[2019-07-26] MEDS: Pantoprazole 40 MG VIAL IVP SCH (08:59)
[2019-07-26] MEDS: 0.9 % Sodium Chloride 1,000 ML IVC SCH ×3 (09:20→23:33)
[2019-07-26] MEDS: 0.9 % Sodium Chloride 500 ML IVC SCH (09:21)
[2019-07-26] MEDS: Ketorolac 15 MG/ML VIAL IVP SCH ×3 (12:25→23:34)
[2019-07-26] MEDS: *HR* Heparin 5,000 UNIT/ML VIAL SQ SCH ×2 (13:08→17:02)
[2019-07-26 16:02] LABS: ABG Base Excess 8 mEq/L (-2 to 3); ABG HCO3 33 mEq/L (21-27); ABG Oxygen Saturation 92 % (95-98); ABG PCO2 49 mmHg (35-45); ABG PH 7.43 pH Units (7.32-7.45); ABG PO2 62 mmHg (85-104); ABG TCO2 34 mEq/L (20-26)
[2019-07-27 01:45] LABS: Basophils % 0.1 %; Nucleated Red Blood Cells 0.2 /100 WBC (0)
[2019-07-27 01:47] LABS: Eosinophils # 0.1 K/mcL (0.0-0.6); Eosinophils % 0.4 %; Hematocrit 25.5 % (35.3-44.9); Hemoglobin 7.2 g/dL (11.5-15.4); Immature Granulocytes % 0.8 % (0-4); Lymphocytes # 0.9 K/mcL (0.6-4.6); Lymphocytes % 6.1 %; Mean Corpuscular HGB Conc 28.2 g/dL (31.6-35.5); Mean Corpuscular Hemoglobin 20.6 pg (28.0-33.3); Mean Corpuscular Volume 73.1 fL (83.0-100.0); Monocytes # 1.4 K/mcL (0.0-1.3); Monocytes % 9.1 %; Platelet Count 333 K/mcL (140-400); Red Blood Count 3.49 M/mcL (3.82-4.97); Red Cell Distribution Width 21.6 % (11.5-14.5); Segmented Neutrophils % 83.5 %; White Blood Count 15.4 K/mcL (4.3-11.1)
[2019-07-27 01:49] LABS: Neutrophils # 12.9 K/mcL (1.6-8.9)
[2019-07-27 02:07] LABS: BUN/Creatinine Ratio 33 (6-26); Blood Urea Nitrogen 14 mg/dL (8-23); Calcium 10.2 mg/dL (8.6-10.3); Carbon Dioxide 28 mEq/L (23-29); Chloride 107 mEq/L (98-107); Glucose 107 mg/dL (70-105); Osmolality,Calculated 295 (280-300); Potassium 3.6 mEq/L (3.5-5.1); Sodium 142 mEq/L (136-145); eGFR For African Americans > 60 (> 60); eGFR For Non-African Americans > 60 (> 60)
[2019-07-27 02:29] LABS: Burr Cells 2+ (Not Present); Ovalocytes 3+ (Not Present); Target Cells 1+ (Not Present)
[2019-07-27 02:30] LABS: Platelet Estimate Normal (Normal); Tear Drop Cells 2+ (Not Present)
[2019-07-27] MEDS: Acetaminophen IV 1,000 MG/100 ML INFUS..BTL IVPB SCH (05:03)
[2019-07-27] MEDS: *HR* Heparin 5,000 UNIT/ML VIAL SQ SCH ×2 (05:04→18:18)
[2019-07-27] MEDS: Ketorolac 15 MG/ML VIAL IVP SCH ×2 (05:04→12:57)
[2019-07-27] MEDS: Budesonide/Formoterol 80/4.5 1 PUFF INH IH SCH ×2 (07:44→21:29)
[2019-07-27] MEDS ORDERED: Acetaminophen 325 MG TABLET PO PRN (08:47)
[2019-07-27] MEDS: amLODIPine 5 MG TABLET PO SCH (09:49)
[2019-07-27] MEDS: Pantoprazole 40 MG VIAL IVP SCH (09:50)
[2019-07-27] MEDS: cefTRIAXone 1,000 MG in 0.9 % Sodium Chloride Mini Bag 100 ML IVPB SCH (09:51)
[2019-07-27] MEDS: Azithromycin 500 MG in 0.9 % Sodium Chloride 250 ML IVPB SCH (10:30)
[2019-07-27] MEDS ORDERED: Heparin 1,000 UNITS/500 mL 500 ML ONE (13:41)
[2019-07-27] MEDS ORDERED: Lidocaine/EPI 1:100k 1% 50 ML VIAL ONE (13:41)
[2019-07-27] MEDS ORDERED: hydrALAZINE 25 MG TABLET PO SCH (15:08)
[2019-07-27] MEDS: Spironolactone 25 MG TABLET PO SCH ×2 (15:54→20:24)
[2019-07-27] MEDS: hydrALAZINE 25 MG TABLET PO SCH (20:24)
[2019-07-27] MEDS ORDERED: Spironolactone 25 MG TABLET PO SCH (21:00)
[2019-07-28] MEDS: hydrALAZINE 25 MG TABLET PO SCH ×2 (03:22→12:10)
[2019-07-28 04:46] LABS: Basophils % 0.1 %; Monocytes % 9.1 %; Nucleated Red Blood Cells 0.3 /100 WBC (0); Segmented Neutrophils % 80.1 %
[2019-07-28 04:48] LABS: Eosinophils # 0.3 K/mcL (0.0-0.6); Eosinophils % 1.8 %; Hematocrit 26.4 % (35.3-44.9); Hemoglobin 7.6 g/dL (11.5-15.4); Immature Granulocytes % 0.6 % (0-4); Lymphocytes # 1.2 K/mcL (0.6-4.6); Lymphocytes % 8.3 %; Mean Corpuscular HGB Conc 28.8 g/dL (31.6-35.5); Mean Corpuscular Hemoglobin 20.7 pg (28.0-33.3); Mean Corpuscular Volume 71.9 fL (83.0-100.0); Mean Platelet Volume 9.5 fL (9.4-12.4); Monocytes # 1.3 K/mcL (0.0-1.3); Platelet Count 378 K/mcL (140-400); Red Blood Count 3.67 M/mcL (3.82-4.97); Red Cell Distribution Width 23.6 % (11.5-14.5); White Blood Count 14.3 K/mcL (4.3-11.1)
[2019-07-28 04:50] LABS: Neutrophils # 11.5 K/mcL (1.6-8.9)
[2019-07-28 05:06] LABS: BUN/Creatinine Ratio 32 (6-26); Blood Urea Nitrogen 12 mg/dL (8-23); Carbon Dioxide 28 mEq/L (23-29); Chloride 105 mEq/L (98-107); Glucose 103 mg/dL (70-105); Osmolality,Calculated 290 (280-300); Potassium 3.3 mEq/L (3.5-5.1); Sodium 140 mEq/L (136-145); eGFR For African Americans > 60 (> 60); eGFR For Non-African Americans > 60 (> 60)
[2019-07-28 05:15] LABS: Anisocytosis 3+ (Not Present); Hypochromasia Present (Not Present); Microcytosis Present (Not Present); Platelet Estimate Normal (Normal); Poikilocytosis 2+ (Not Present); Target Cells 2+ (Not Present)
[2019-07-28 05:16] LABS: Polychromasia 1+ (Not Present)
[2019-07-28] MEDS: *HR* Heparin 5,000 UNIT/ML VIAL SQ SCH (05:39)
[2019-07-28 06:55] VITALS: BP 141/60
[2019-07-28] MEDS: Budesonide/Formoterol 80/4.5 1 PUFF INH IH SCH (08:04)
[2019-07-28] MEDS: Pantoprazole 40 MG VIAL IVP SCH (09:14)
[2019-07-28] MEDS: Spironolactone 25 MG TABLET PO SCH (09:17)
[2019-07-28] MEDS: amLODIPine 5 MG TABLET PO SCH (09:18)
[2019-07-28] MEDS: Azithromycin 500 MG in 0.9 % Sodium Chloride 250 ML IVPB SCH (09:22)
[2019-07-28] MEDS: cefTRIAXone 1,000 MG in 0.9 % Sodium Chloride Mini Bag 100 ML IVPB SCH (09:52)
== END 2019-07-28 12:20 | disposition home or self-care (01) | DRG 329 ==
LOC: EMEROOARM 12:07 → 2NENU 12:07 → SUATTDRO 15:04 → 2NENU 16:03 → 3ANU 07-22 11:00 → SUATTDRO 07-24 07:28
PROVIDERS: ADMIT Family Medicine; ATTEND Internal Medicine
PROC: ENDOCBX (2019-07-23 15:30)